=== PATIENT | male | born 2000 | race Two or more races ===

== ENCOUNTER 2024-05-06 02:46 | Emergency (ER) | payer MEDICAID ==
[~2024-05-06] VITALS: Ht 167.6 cm; Wt 63.7 kg
[~2024-05-06 02:46] MED LIST: IBUP-1454 PO
[2024-05-06 05:13] VITALS: BP 126/74; PULSE 60; RESP 18; TEMP 97.9; O2SAT 100
[2024-05-06] MEDS: IBUPROFEN 800 MG TAB PO ONE (05:24)
[2024-05-06] MEDS ORDERED: IBUP-1456 PO (05:25)
== END 2024-05-06 05:30 | disposition home or self-care (01) ==
LOC: ER 02:46
DX: S62.001A Unspecified fracture of navicular [scaphoid] bone of right wrist, initial encounter for closed fracture (principal); Z79.899 Other long term (current) drug therapy; W18.39XA Other fall on same level, initial encounter; Y93.66 Activity, soccer; Y92.89 Other specified places as the place of occurrence of the external cause; Y99.8 Other external cause status
CPT/HCPCS: 29125; 73110